=== PATIENT | male | born 1995 | race Caucasian/White ===

== ENCOUNTER 2020-09-29 15:40 | Outpatient (CLI) | payer OTHER, SELFPAY ==
--- NOTE | ~2020-09-29 | MR_ITS ---
EXAMINATION: MR brain/brain stem wo con EXAM DATE: 09/29/2020 16:30 INDICATION: vertigo, dizziness since 06/2020. TECHNIQUE: Magnetic resonance imaging (MRI) of the brain/brain stem obtained without contrast. Radha al T1, axial diffusion, gradient echo (T2*), T1, T2, FLAIR sequences obtained. There is no prior st udy for comparison. FINDINGS: There are no areas of restricted diffusion to suggest acute infarction. There is no acute hemorrhage seen on the T2*, a hemosiderin sensitive sequence. No intraparenchymal brain mass. The ve ntricles are normal in size. There are no extra-axial collections. Flow voids are seen in the cereb ral arteries on the T2-weighted sequences consistent with their expected patency. The orbits are unr emarkable. Soft tissue is unremarkable. IMPRESSION: 1. Normal brain MRI examination. Reviewed, dictated and finalized at location A. [employer]
== END 2020-09-29 15:41 | disposition home or self-care (01) ==
PROVIDERS: PCP Physician Assistant; Visit Provider Psychiatry & Neurology Neurology
DX: R42 Dizziness and giddiness (principal)
CPT/HCPCS: 70551

== ENCOUNTER 2021-09-07 20:40 | Emergency (ER) | payer OTHER, SELFPAY ==
--- NOTE | ~2021-09-07 | XR_ITS ---
EXAMINATION: XR chest 2V 09/07/2021 21:10 INDICATION: Left sided chest pain PROCEDURE: 2 view chest COMPARISON: 09/11/2020 FINDINGS: The lungs are clear. The cardiomediastinal silhouette is within normal limits. There are no pleural effusions. There is no pneumothorax suspected. IMPRESSION: 1: NO ACUTE CARDIOPULMONARY DISEASE. Reviewed, dictated and finalized at location A.
--- NOTE | 2021-09-07 20:42 | ECG_ITS ---
Measurements Intervals [place] Rate: 69 P: 70 CO: 156 QRS: 71 QRSD: 96 T: 61 QT: 310 QTc: 332 Interpretive Statements SINUS RHYTHM INCOMPLETE RIGHT BUNDLE BRANCH BLOCK BASELINE ARTIFACT- I, II, III BORDERLINE ECG Electronically Signed On 09-08-2021 7:40:46 CDT by Sarthak Wilcox D.O.
[2021-09-07 20:46] VITALS: BP 116/76; PULSE 70; RESP 18; TEMP 35.9; O2SAT 100
[2021-09-07 20:58] LABS: Basophils Percent Auto 0.3 % (0.2-1.2); Eosinophils Absolute Auto 0.1 K/mm3 (0-0.3); Eosinophils Percent Auto 2.1 % (0-4.4); Hematocrit 44.3 % (42.0-52.0); Hemoglobin 15.3 g/dL (14.0-18.0); Immature Granulocyte Absolute 0.02 K/mm3 (0.00-0.031); Immature Granulocyte Percent A 0.3 % (0-0.5); Lymphocytes Absolute Auto 1.93 K/mm3 (0.9-3.2); Lymphocytes Percent Auto 30.6 % (18.3-44.2); Mean Corpuscular HGB Conc 34.5 g/dl (32-36); Mean Corpuscular Hemoglobin 30.6 pg (26-34); Mean Corpuscular Volume 88.6 fl (80-100); Monocytes Absolute Auto 0.6 K/mm3 (0.1-0.6); Neutrophils Absolute Auto 3.6 K/mm3 (1.3-6.7); Neutrophils Percent Auto 56.7 % (45.5-73.1); Platelet Count Result 196 k/mm3 (150-375); Red Cell Distribution Width 11.9 % (11.5-14.5); White Blood Count 6.3 K/mm3 (4.5-10.0)
[2021-09-07 21:07] LABS: Anion Gap 10 mmol/L (8-16); Blood Urea Nitrogen 17 mg/dL (9-20); Calcium 9.5 mg/dL (8.4-10.2); Carbon Dioxide 29 mmol/L (22-30); Chloride 102 mmol/L (98-107); Estimated Glomerular Filt Rate > 60; Glucose 107 mg/dL (65-110); Potassium 3.5 mmol/L (3.4-5.0); Sodium 141 mmol/L (137-145)
[2021-09-07 21:10] LABS: INR 1.2; Prothrombin Time 15.1 Seconds (11.1-14.7)
[2021-09-07 21:11] LABS: Partial Thromboplastin Time 25.6 SECONDS (22.3-36.8)
[2021-09-07 21:19] LABS: Troponin I < 0.012 ng/mL (0.000-0.034)
[2021-09-07] MEDS: ASPIRIN 81 MG CHEWABLE TABLET 324 MG PO (21:53)
[2021-09-07 21:57] VITALS: PULSE 80; RESP 14; O2SAT 100
[2021-09-07 22:00] VITALS: PULSE 77; RESP 18; O2SAT 100
[2021-09-07 22:05] LABS: D Dimer 0.27 ug/mL (<0.48)
--- NOTE | 2021-09-07 22:59 | ED.CHESTPAIN ---
HPI - Chest Pain General Chief Complaint: Chest Pain Stated Complaint: Chest Pain Time Seen by Provider: 09/07/21 21:20 History of Present Illness HPI narrative: Patient is a 25-year-old male who presents ER with concerns for chest pain. Reports he was watching TV with his mother when he started having sharp pain in his left lateral chest around the pack. No radiation. It would wax and wane in intensity. He then stood up and was walking in got lightheaded. He then fell down to the ground. Did not have full loss of consciousness. Witnessed by mother. Reports he was feeling briefly confused afterwards. No sinus congestion or sore throat or productive cough. Has some mild anxiety. Unsure if he had a panic attack. Reports he stayed up all night the night previously due to having a midterm do. He got a couple hours of sleep and that was relaxing this evening. Related Data Home Medications Medication Instructions Recorded Confirmed cetirizine 10 mg capsule 10 mg PO DAILY 04/21/20 01/19/21 mrvbdgtm-mainijrp-zexjf acid 400 tablet PO 04/21/20 mcg-vit K 20 mcg-lycop 300 mcg tablet minocycline 50 mg capsule 50 mg PO DAILY cap 01/19/21 01/19/21 Allergies Allergy/AdvReac Type Severity Reaction Status Date / Time erythromycin base Allergy Unknown Other Verified 09/07/21 22:22 sulfisoxazole Allergy Unknown Other Verified 09/07/21 22:22 amoxicillin AdvReac Mild Rash Verified 09/07/21 22:22 ERYTHROMYCIN ETHYLSUCCINATE Allergy Unknown Other Uncoded 09/07/21 22:22 SULFISOXAZOLE ACETYL Allergy Unknown Other Uncoded 09/07/21 22:22 Review of Systems Review of Systems: All systems reviewed & are unremarkable except as noted in HPI and below Constitutional: Constitutional: Denies chills, Denies fever(s) and Denies weakness ENT: Denies nasal congestion and Denies sore throat Cardiovascular: Cardiovascular: Reports chest pain, Denies rapid heart rate and Denies radiating jaw, neck or arm pain Respiratory: Respiratory: Denies cough and Denies dyspnea Gastrointestinal: Gastrointestinal: Denies nausea and Denies vomiting Neurologic: Reports syncope (Near), Denies focal weakness and Denies numbness PMFSH Past Medical History Medical History (Updated 09/07/21 @ 23:01 by Subhash Castano MD) Allergies Healthy adult male Surgical History Surgical History (Updated 09/07/21 @ 23:01 by Subhash Castano MD) No history of previous surgery Family History Family History Mother Patient's mother is in good health Father Patient's father is in good health Sibling Patient's brother is in good health Other Diabetes mellitus Family history of arthritis Family history of gout Hypertension Social History Social History Smoking status: Never smoker Second hand tobacco smoke exposure: No Alcohol intake: never Exam Narrative: GENERAL: Well-appearing, well-nourished, and in no acute distress. HEAD: Normocephalic, atraumatic. CHEST: Clear to auscultation. No respiratory distress. HEART: Regular rate and rhythm. Normal peripheral pulses. EXTREMITIES: Normal range of motion. No edema. SKIN: Warm, dry, no rash. NEURO: Alert and oriented x3. PSYCH: Normal mood and affect. Course Course Emergency Course: Patient informed results. Atypical presentation. [place] more likely to be anxiety and/or muscle spasm. D-dimer negative. Discharge home. Vital Signs Vital signs: Vital Signs Temperature 96.7 F L 09/07/21 20:46 Pulse Rate 70 09/07/21 20:46 Respiratory Rate 18 09/07/21 20:46 Blood Pressure 116/76 09/07/21 20:46 Pulse Oximetry 100 09/07/21 20:46 Temperature 96.7 F L 09/07/21 20:46 Pulse Rate 77 09/07/21 22:00 Respiratory Rate 18 09/07/21 22:00 Blood Pressure 116/76 09/07/21 20:46 Pulse Oximetry 100 09/07/21 22:00 MDM - Chest Pain Lab Data Result d
[2021-09-07 23:13] VITALS: BP 124/68; PULSE 67; RESP 18; O2SAT 100
== END 2021-09-07 23:18 | disposition home or self-care (01) ==
PROVIDERS: Emergency Provider Emergency Medicine; PCP Physician Assistant
DX: R07.9 Chest pain, unspecified (principal); I45.10 Unspecified right bundle-branch block
CPT/HCPCS: 36415; 71046; 80048; 84484; 85025; 85380; 85610; 85730; 93005; 99284; A9270